=== PATIENT | male | born 1930 | race Caucasian/White ===

== ENCOUNTER 2017-09-22 13:09 | Inpatient (IN) | payer OTHER ==
[~2017-09-22] VITALS: Ht 180.3 cm; Wt 80.9 kg
--- NOTE | ~2017-09-22 | PROC NOTE ---
[place], [place] PROCEDURE NOTE NAME: YANETH CASTELAN UNIT #: [id number] ROOM: 507 DOCTOR: MANNY SON BIRTHDATE: [birth year] DOS: 09/23/2017 REFERRING PHYSICIAN: Dr. Real. RADIOLOGIST: Dr. Chaves. INDICATIONS: The patient is an 87-year-old male brought to [facility] following a syncopal episode. His previous medical history includes AFib, CKD, CAD, HTN, HLD, OA and prostate cancer and BSS was ordered per patient and family's request due to his reported difficulty swallowing solids. The patient endorsed difficulty swallowing solid foods only noting that he feels congestion in his throat and chest during and following meals. He endorsed recent weight loss, but felt this was attributable to a variety of factors, not only swallowing difficulty. He denied recent pneumonia. The patient has been consuming a regular diet with thin liquids. ORAL MECHANISM AND MOTOR SPEECH EXAM: Symmetry, strength, range of motion, coordination and accuracy of movement of upper/lower face, lips, jaw, tongue and palate were within functional limits. The patient has natural dentition in adequate condition. Speech comprehends ability was 100% with no evidence of motor speech disorder. MBSS METHODS: This exam was viewed in the lateral plane. The patient self-fed the following barium impregnated consistencies: Single sips of thin liquids via cup x 2, multiple consecutive sips of thin liquids via cup x 1, teaspoon of pureed x 1, bite of soft solids x 1 and bite of course solids x 1. The patient also trialled bite of soft solids and AP view. ORAL PHASE: Adequate bolus acceptance with no anterior loss. AP bolus transit was timely and adequate. Mastication was moderately prolonged, but complete. Premature loss to the level of the vallecula noted with solids only. Piecemeal derotation also noted with solids. No oral residue appreciated. PHARYNGEAL PHASE: Initiation of the swallow response was timely. HLE was adequate in both anterior and superior planes with subsequent adequate epiglottic retroflexion. No aspiration or penetration was observed with any consistency. Mild pharyngeal residue noted in vallecula and piriform sinuses following bites of solids. This cleared with subsequent swallows. UES: Unremarkable. AP ESOPHAGEAL SCREENING: Unremarkable. IMPRESSION: The patient presents with mild oral dysphagia classified by prolonged mastication and premature loss of solids. The patient had no aspiration or penetration across consistencies. He remains appropriate for regular diet with thin liquids. Recommendations listed below to improve p.o. tolerance. [place], [place] PROCEDURE NOTE NAME: YANETH CASTELAN UNIT #: [id number] ROOM: [facility] DOCTOR: MANNY SON BIRTHDATE: [birth year] RECOMMENDATIONS: 1. Continue current diet, regular food with thin liquids. 2. Aspiration precautions, fully upright, awake and alert for all p.o. small bites/sips with slow rate of feeding, alternate bites/sips as needed, oral care at least b.i.d. PLAN OF CARE: If patient remains in health, [facility] will follow up likely x 1 to review recommendations. Findings and recommendations were reviewed with the patient who expressed understanding. Thank you for consulting. If there are any questions, please contact the FINANCE CONTR[facility]LLER Department at [phone]. Manny Rutherford CM:PROCNOTE:PROCEDURE NOTE [id number] MANNY SON
--- NOTE | ~2017-09-22 | CON ---
[place], [place] REPORT OF CONSULTATION NAME: YANETH CASTELAN UNIT #: [id number] ROOM: 507 DOCTOR: YOSELIN MONGE MD, FACC BIRTHDATE: [birth year] DOS: 09/23/2017 CARDIOLOGY CONSULTATION HISTORY OF PRESENT ILLNESS: The patient came in with syncope and the patient apparently did not eat for a while and did not drink. The patient has diuretics and vasodilators possibly could have been orthostatic and hypotensive. A CT scan of the head is unremarkable. No focal neurological deficit noted. The patient has history of systolic left ventricular dysfunction with diminished systolic ejection fraction anywhere from 25%-40% and some vascular congestion initially when he came in. The patient is on diuretics and also on vasodilators and also the patient is into beta blocking of both Coreg and metoprolol and probably we will keep him on metoprolol and not on Coreg because of the concern for the vasodilator effect and a cut back. Because of the left ventricular dysfunction systolic, he should be on a small dose of beta blocking agent and a small dose of ABY inhibitor and baby aspirin. The patient's hemoglobin 12.3 is unremarkable and troponin is negative and a mild chronic kidney disease, probably stage 3. Maybe hold off on the diuretics at this time and very small dose of nitrate may be considered. Right now, he is not on any cardiovascular medications. I will review the echocardiogram, which was ordered. PHYSICAL EXAMINATION: VITAL SIGNS: Stable. GENERAL: Alert, not in any acute distress. NECK: No jugular venous distention noted. Supple. LUNGS: Diminished breath sounds at the bases. Minimal basilar rales. HEART: S1, S2 regular. ABDOMEN: Soft. SKIN: SKIN: Warm. Color is good. Not diaphoretic. EXTREMITIES: No cyanosis. NEUROLOGICAL: No focal neurological deficit noted. RECTAL AND GENITAL: Deferred unrelated. DIAGNOSES: 1. Mild pulmonary congestion and systolic left ventricular dysfunction. 2. Chronic kidney disease. 3. Dyslipidemia. 4. Diabetes. 5. Hypertensive cardiovascular disease. The pacemaker site is intact. Thank you very much for asking me to see the patient. I will follow the patient with you. [place], [place] REPORT OF CONSULTATION NAME: YANETH CASTELAN UNIT #: [id number] ROOM: 507 DOCTOR: YOSELIN MONGE MD, FACC BIRTHDATE: [birth year] YOSELIN MONGE MD CM:CONSTR:REPORT OF CONSULTATION 0633 09/23/17 0728 interface
[~2017-09-22 13:09] MED LIST: ASPIRIN81 M1 PO; CARDIZEM CD240 MG PO; CARVEDILOL6.25 MG PO; CELEXA20 MG PO; CLINDAMYCIN HC300 MG PO; COUMADIN3 M1 PO; COUMADIN3 MG PO; DULCOLAX5 MG PO; EPA1000 MG PO; FERROUS SULFAT325 M1 PO; FLEXERIL10 MG PO; FLOMAX0.4 MG PO; GLIMEPIRIDE4 MG PO; HYDROCODONE BIT1 T11 PO; JANTOVEN1 MG PO; KEFLEX250 MG PO; LASIX20 MG PO; LIPITOR20 MG PO; LISINOPRIL10 M1 PO; LOPRESSOR25 MG PO; MEDROL DOSEPAK4 MG PO; METFORMIN850 MG PO; MOM30 M1 PO; Metformin Hydr500 MG PO; NOVOLOG1 UNIT/0.0 SC; PERCOCET 325 MG1 TA2 PO; SEPTRA 400 MG-81 TAB PO; SIMVASTATIN40 MG PO; TYLENOL325 M1 PO; WARFARIN2 MG PO; XARE20MG PO; ZOFRAN ODT4 MG SL
[2017-09-22 13:12] VITALS: BP 136/70
[2017-09-22 13:35] LABS: BASO % 0.6 % (0.0-1.0); EOS # 0.3 10*3/uL (0.0-0.4); EOS % 4.3 % (1.0-4.0); HEMATOCRIT 38.9 % (42.0-52.0); HEMOGLOBIN 12.3 g/dl (14.0-18.0); LYMPH # 1.2 10*3/uL (1.3-4.4); MEAN CELL VOLUME 82.1 fl (80.0-94.0); MEAN CORPUSCULAR HGB 25.9 pg (27.0-31.0); MEAN CORPUSCULAR HGB CONC 31.6 g/dl (33.0-37.0); MEAN PLATELET VOLUME 11.3 fl (9.6-12.3); MONO # 0.8 10*3/uL (0.1-1.0); MONO % 11.9 % (3.0-9.0); NEUT # 4.2 10*3/uL (2.3-7.9); NEUT % 63.9 % (47.0-73.0); PLATELET COUNT AUTOMATED 193 10*3/uL (130-400); RED BLOOD COUNT 4.74 10*6/uL (4.50-5.90); RED CELL DISTRI WIDTH 18.5 % (0-14.5); WHITE BLOOD COUNT 6.5 10*3/uL (4.8-10.8)
[2017-09-22 13:51] LABS: ALBUMIN 3.1 gm/dl (3.1-4.5); ALKALINE PHOSPHATASE 81 U/L (45-117); BUN 18 mg/dl (7-24); CHLORIDE 106 mmol/L (98-107); CREATININE 1.05 mg/dL (0.70-1.30); LIPASE 57 U/L (73-393); POTASSIUM 4.9 mmol/L (3.5-5.1); SGOT/AST 10 IU/L (3-35); SGPT/ALT 12 U/L (12-78); SODIUM 141 mmol/L (136-145); TOTAL PROTEIN 6.7 gm/dL (6.4-8.2)
[2017-09-22 13:54] LABS: TROPONIN I < 0.015 ng/ml (<0.045)
[2017-09-22 13:56] LABS: ACT PARTIAL THROMBO TIME 36.3 SECONDS (20.8-31.5); INTERNATIONAL NORM RATIO 1.8 (2.0-3.5)
[2017-09-22 14:27] VITALS: BP 137/82
[2017-09-22 16:00] VITALS: BP 144/88
[2017-09-22] MEDS ORDERED: CELEXA10 MG PO (19:02)
[2017-09-22 20:00] VITALS: BP 138/69
[2017-09-22 22:03] LABS: BILIRUBIN NEGATIVE (NEGATIVE); BLOOD NEGATIVE (NEGATIVE); CLARITY CLEAR (CLEAR); COLOR YELLOW (YELLOW); GLUCOSE NEGATIVE (NEGATIVE); KETONE NEGATIVE (NEGATIVE); LEUKO ESTERASE NEGATIVE (NEGATIVE); NITRITE NEGATIVE (NEGATIVE); UROBILINOGEN 0.2 E.U./dl (0.2-1.0)
[2017-09-22 22:09] LABS: BACTERIA TRACE
[2017-09-23] VITALS: BP 141/87
[2017-09-23 06:34] LABS: BASO % 0.6 % (0.0-1.0); EOS # 0.3 10*3/uL (0.0-0.4); EOS % 4.4 % (1.0-4.0); HEMATOCRIT 38.3 % (42.0-52.0); HEMOGLOBIN 12.2 g/dl (14.0-18.0); LYMPH # 1.3 10*3/uL (1.3-4.4); LYMPH % 19.3 % (27.0-41.0); MEAN CELL VOLUME 81.3 fl (80.0-94.0); MEAN CORPUSCULAR HGB 25.9 pg (27.0-31.0); MEAN CORPUSCULAR HGB CONC 31.9 g/dl (33.0-37.0); NEUT # 4.2 10*3/uL (2.3-7.9); NEUT % 61.4 % (47.0-73.0); PLATELET COUNT AUTOMATED 191 10*3/uL (130-400); RED BLOOD COUNT 4.71 10*6/uL (4.50-5.90); RED CELL DISTRI WIDTH 18.6 % (0-14.5); WHITE BLOOD COUNT 6.9 10*3/uL (4.8-10.8)
[2017-09-23 06:59] LABS: INTERNATIONAL NORM RATIO 1.5 (2.0-3.5)
[2017-09-23 07:00] LABS: ALBUMIN 3.2 gm/dl (3.1-4.5); BUN 20 mg/dl (7-24); CHLORIDE 103 mmol/L (98-107); CHOLESTEROL 86 mg/dL (<200); CREATININE 1.01 mg/dL (0.70-1.30); SGOT/AST 13 IU/L (3-35); SGPT/ALT 12 U/L (12-78); SODIUM 140 mmol/L (136-145); TRIGLYCERIDES 67 mg/dl (<150); VLDL CHOLESTEROL 13 mg/dL (6-40)
[2017-09-23 07:08] LABS: ALKALINE PHOSPHATASE 81 U/L (45-117); HDL CHOLESTEROL 36 mg/dl (40-60); LDL CHOLESTEROL 37 mg/dL (9-159); TOTAL PROTEIN 6.9 gm/dL (6.4-8.2)
[2017-09-23 07:26] LABS: POTASSIUM 3.8 mmol/L (3.5-5.1)
[2017-09-23 08:00] VITALS: BP 158/95
[2017-09-23 12:00] VITALS: BP 123/75
[2017-09-23] MEDS ORDERED: METFORMIN500 MG PO (12:19)
[2017-09-23] MEDS ORDERED: COREG6.25 MG PO (12:20)
[2017-09-23] MEDS ORDERED: PRINIVIL10 MG PO (12:21)
[2017-09-23] MEDS ORDERED: CITALOPRAM20 MG PO (12:22)
[2017-09-23] MEDS ORDERED: VITAMIN D-32000 UNI1 PO (12:22)
[2017-09-23 16:00] VITALS: BP 136/93
[2017-09-23 20:00] VITALS: BP 148/90
[2017-09-24] VITALS: BP 126/79
[2017-09-24 06:55] LABS: BASO % 0.5 % (0.0-1.0); EOS # 0.3 10*3/uL (0.0-0.4); EOS % 4.7 % (1.0-4.0); HEMOGLOBIN 11.7 g/dl (14.0-18.0); LYMPH # 1.4 10*3/uL (1.3-4.4); LYMPH % 21.7 % (27.0-41.0); MEAN CELL VOLUME 80.5 fl (80.0-94.0); MEAN CORPUSCULAR HGB 26.2 pg (27.0-31.0); MEAN CORPUSCULAR HGB CONC 32.5 g/dl (33.0-37.0); MEAN PLATELET VOLUME 10.6 fl (9.6-12.3); MONO % 15.7 % (3.0-9.0); NEUT # 3.8 10*3/uL (2.3-7.9); NEUT % 57.1 % (47.0-73.0); PLATELET COUNT AUTOMATED 187 10*3/uL (130-400); RED BLOOD COUNT 4.47 10*6/uL (4.50-5.90); RED CELL DISTRI WIDTH 18.3 % (0-14.5); WHITE BLOOD COUNT 6.6 10*3/uL (4.8-10.8)
[2017-09-24 07:06] LABS: BUN 17 mg/dl (7-24); CHLORIDE 104 mmol/L (98-107); POTASSIUM 3.8 mmol/L (3.5-5.1); SODIUM 141 mmol/L (136-145)
[2017-09-24 08:00] VITALS: BP 162/93
[2017-09-24 12:00] VITALS: BP 148/90
[2017-09-24 16:00] VITALS: BP 138/96
[2017-09-24 20:00] VITALS: BP 148/84
[2017-09-25] VITALS: BP 150/82; BP 156/92
[2017-09-25 08:00] VITALS: BP 157/90
[2017-09-25] MEDS ORDERED: IMDUR SA30 MG PO (10:37)
[2017-09-25] MEDS ORDERED: LANOXIN0.125 MG PO (10:37)
[2017-09-25] MEDS ORDERED: LISINOPRIL5 MG PO (10:37)
[2017-09-25] MEDS ORDERED: LOPRESSOR25 MG PO (10:37)
[2017-09-25 12:00] VITALS: BP 135/88
== END 2017-09-25 13:45 | disposition home health service (06) | DRG 312 ==
LOC: ED 13:09 → 5E 15:05 → EDHOLD 15:05 → 5E 15:32
PROVIDERS: Emergency Medicine; Hospitalist
PROC: BD11YZZ Fluoroscopy of Esophagus using Other Contrast (ICD-10-PCS; principal; 2017-09-23)
DX: R55 Syncope and collapse (principal); E11.22 Type 2 diabetes mellitus with diabetic chronic kidney disease; E11.65 Type 2 diabetes mellitus with hyperglycemia; I48.2 Chronic atrial fibrillation; N18.3 Chronic kidney disease, stage 3 (moderate); D64.9 Anemia, unspecified; E78.2 Mixed hyperlipidemia; I25.10 Atherosclerotic heart disease of native coronary artery without angina pectoris; R94.30 Abnormal result of cardiovascular function study, unspecified; M19.90 Unspecified osteoarthritis, unspecified site; I13.10 Hypertensive heart and chronic kidney disease without heart failure, with stage 1 through stage 4 chronic kidney disease, or unspecified chronic kidney disease; N20.0 Calculus of kidney; Z79.899 Other long term (current) drug therapy; Z91.041 Radiographic dye allergy status; Z95.5 Presence of coronary angioplasty implant and graft; Z82.49 Family history of ischemic heart disease and other diseases of the circulatory system; Z83.3 Family history of diabetes mellitus; Z85.46 Personal history of malignant neoplasm of prostate; Z95.0 Presence of cardiac pacemaker; Z83.2 Family history of diseases of the blood and blood-forming organs and certain disorders involving the immune mechanism; Z79.82 Long term (current) use of aspirin; Z98.890 Other specified postprocedural states

== ENCOUNTER → 2017-10-02 | Outpatient (CLI) | payer OTHER ==
[~2017-10-02] MED LIST changes: +CELEXA10 MG PO; +CITALOPRAM20 MG PO; +COREG6.25 MG PO; +IMDUR SA30 MG PO; +LANOXIN0.125 MG PO; +LISINOPRIL5 MG PO; +METFORMIN500 MG PO; +PRINIVIL10 MG PO; +VITAMIN D-32000 UNI1 PO
== END | disposition home or self-care (01) ==
LOC: LAB 13:02 → US 13:30
DX: I65.23 Occlusion and stenosis of bilateral carotid arteries (principal); I25.10 Atherosclerotic heart disease of native coronary artery without angina pectoris; I48.2 Chronic atrial fibrillation; R55 Syncope and collapse

== ENCOUNTER → 2017-12-01 | Outpatient (CLI) | payer OTHER ==
[2017-12-01 10:19] LABS: BASO % 0.4 % (0.0-1.0); EOS # 0.4 10*3/uL (0.0-0.4); EOS % 4.3 % (1.0-4.0); HEMATOCRIT 41.4 % (42.0-52.0); HEMOGLOBIN 13.2 g/dl (14.0-18.0); LYMPH # 2.2 10*3/uL (1.3-4.4); LYMPH % 24.5 % (27.0-41.0); MEAN CELL VOLUME 83.6 fl (80.0-94.0); MEAN CORPUSCULAR HGB 26.7 pg (27.0-31.0); MEAN CORPUSCULAR HGB CONC 31.9 g/dl (33.0-37.0); MEAN PLATELET VOLUME 11.2 fl (9.6-12.3); MONO # 1.3 10*3/uL (0.1-1.0); MONO % 13.8 % (3.0-9.0); NEUT # 5.2 10*3/uL (2.3-7.9); NEUT % 56.7 % (47.0-73.0); PLATELET COUNT AUTOMATED 254 10*3/uL (130-400); RED BLOOD COUNT 4.95 10*6/uL (4.50-5.90); RED CELL DISTRI WIDTH 16.4 % (0-14.5); WHITE BLOOD COUNT 9.1 10*3/uL (4.8-10.8)
[2017-12-01 10:45] LABS: BUN 16 mg/dl (7-24); CHLORIDE 102 mmol/L (98-107); CHOLESTEROL 115 mg/dL (<200); CREATININE 0.96 mg/dL (0.70-1.30); HDL CHOLESTEROL 39 mg/dl (40-60); LDL CHOLESTEROL 54 mg/dL (9-159); PHOSPHOROUS 3.3 mg/dL (2.5-4.9); POTASSIUM 3.9 mmol/L (3.5-5.1); SGOT/AST 11 IU/L (3-35); SGPT/ALT 13 U/L (12-78); SODIUM 140 mmol/L (136-145); TRIGLYCERIDES 110 mg/dl (<150); VLDL CHOLESTEROL 22 mg/dL (6-40)
== END | disposition home or self-care (01) ==
LOC: LAB 00:57
PROVIDERS: Internal Medicine Cardiovascular Disease
DX: I25.10 Atherosclerotic heart disease of native coronary artery without angina pectoris (principal)